=== PATIENT | female | born 1980 | race Caucasian/White ===

== ENCOUNTER 2017-05-28 19:06 | Emergency (ER) | payer OTHER ==
[~2017-05-28] VITALS: Ht 172.7 cm; Wt 56.7 kg
[~2017-05-28 19:06] MED LIST: BENZ100A PO; Bactrim Ds Tab1 EACH PO; CITA20 PO; CODACE30 PO; CYCL10 PO; DULO60 PO; GUAI120S1 PO; IBUP600 PO; METPRE4DP PO; NAPR220 PO; NAPR550 PO; NITR100CA PO; Naprosyn500 MG PO; Norco 5-325 Ta1 EACH PO; PENVK500 PO; PHENA100 PO; PRED20 PO; RXTRAM50 PO; SULI200 PO; TRAM50 PO; TRAZ50 PO; Ultram50 MG PO; Valium5 MG PO; Zithromax250 MG PO; Zofran Odt4 MG SL
[2017-05-28] MEDS ORDERED: Robaxin500 MG PO (19:48)
[2017-07-15] MEDS ORDERED: Cyclobenzaprine5 MG PO (16:02)
== END 2017-05-28 19:54 | disposition home or self-care (01) ==
LOC: ER 19:06
DX: M54.6 Pain in thoracic spine (principal); Z88.8 Allergy status to other drugs, medicaments and biological substances; Z79.899 Other long term (current) drug therapy; M26.609 Unspecified temporomandibular joint disorder, unspecified side; G43.909 Migraine, unspecified, not intractable, without status migrainosus; Z90.89 Acquired absence of other organs; Z98.51 Tubal ligation status; F17.200 Nicotine dependence, unspecified, uncomplicated; W01.198A Fall on same level from slipping, tripping and stumbling with subsequent striking against other object, initial encounter
CPT/HCPCS: 96372; 99283; J1885

== ENCOUNTER 2017-06-11 21:00 | Emergency (ER) | payer OTHER ==
[~2017-06-11] VITALS: Ht 172.7 cm; Wt 54.4 kg
[~2017-06-11 21:00] MED LIST changes: +Robaxin500 MG PO
[2017-06-11] MEDS ORDERED: Mobic15 MG PO (22:48)
[2017-07-15] MEDS ORDERED: Cyclobenzaprine5 MG PO (16:02)
== END 2017-06-11 22:53 | disposition home or self-care (01) ==
LOC: ER 21:00
DX: S80.11XA Contusion of right lower leg, initial encounter (principal); F17.210 Nicotine dependence, cigarettes, uncomplicated; Z88.8 Allergy status to other drugs, medicaments and biological substances; Z79.899 Other long term (current) drug therapy; W54.1XXA Struck by dog, initial encounter
CPT/HCPCS: 73610; 96372; 99283; J1885

== ENCOUNTER 2017-07-15 15:05 | Emergency (ER) | payer OTHER ==
[~2017-07-15] VITALS: Ht 172.7 cm; Wt 56.7 kg
[~2017-07-15 15:05] MED LIST changes: +Mobic15 MG PO
[2017-07-15] MEDS ORDERED: Cyclobenzaprine5 MG PO ×2 (16:02)
== END 2017-07-15 16:21 | disposition home or self-care (01) ==
LOC: ER 15:05
DX: T14.8XXA Other injury of unspecified body region, initial encounter (principal); M54.6 Pain in thoracic spine; M25.511 Pain in right shoulder; M25.512 Pain in left shoulder; F17.210 Nicotine dependence, cigarettes, uncomplicated; Z88.8 Allergy status to other drugs, medicaments and biological substances; Z88.1 Allergy status to other antibiotic agents; Z79.899 Other long term (current) drug therapy; X50.0XXA Overexertion from strenuous movement or load, initial encounter
CPT/HCPCS: 99283

== ENCOUNTER 2018-09-16 18:54 | Emergency (ER) | payer OTHER ==
[~2018-09-16] VITALS: Ht 172.7 cm; Wt 61.2 kg
[~2018-09-16 18:54] MED LIST changes: +Cyclobenzaprine5 MG PO
[2018-09-16] MEDS ORDERED: CIPR500 PO (20:14)
[2018-09-16] MEDS ORDERED: KETO10 PO (20:14)
== END 2018-09-16 20:24 | disposition home or self-care (01) ==
LOC: ER 18:54
DX: S91.331A Puncture wound without foreign body, right foot, initial encounter (principal); W22.8XXA Striking against or struck by other objects, initial encounter; Z88.8 Allergy status to other drugs, medicaments and biological substances; Z79.899 Other long term (current) drug therapy; G43.909 Migraine, unspecified, not intractable, without status migrainosus; F17.210 Nicotine dependence, cigarettes, uncomplicated
CPT/HCPCS: 73630; 90471; 90714; 99283-25

== ENCOUNTER 2018-10-07 21:33 | Emergency (ER) | payer OTHER ==
[~2018-10-07] VITALS: Ht 172.7 cm; Wt 61.2 kg
[~2018-10-07 21:33] MED LIST changes: +CIPR500 PO; +KETO10 PO
[2018-10-07] MEDS ORDERED: NAPR500EC PO (21:39)
[2018-10-07] MEDS ORDERED: KETO10 PO (23:03)
== END 2018-10-07 23:14 | disposition home or self-care (01) ==
LOC: ER 21:33
DX: M62.830 Muscle spasm of back (principal); Z88.8 Allergy status to other drugs, medicaments and biological substances; Z79.899 Other long term (current) drug therapy; G43.909 Migraine, unspecified, not intractable, without status migrainosus; F17.210 Nicotine dependence, cigarettes, uncomplicated
CPT/HCPCS: 93005; 93010; 99283-25; A9270

== ENCOUNTER 2019-03-22 13:02 | Emergency (ER) | payer OTHER ==
[~2019-03-22] VITALS: Ht 172.7 cm; Wt 59.4 kg
[~2019-03-22 13:02] MED LIST changes: +NAPR500EC PO; +VICODIN 5-3001 EACH PO; +Zofran4 MG PO
[2019-03-22] MEDS ORDERED: IBUP800 PO (14:08)
[2019-03-22] MEDS ORDERED: Prednisone20 MG PO (14:15)
[2019-03-22] MEDS ORDERED: TRAZ50 PO (14:36)
== END 2019-03-22 14:37 | disposition home or self-care (01) ==
LOC: ER 13:02
DX: S43.401A Unspecified sprain of right shoulder joint, initial encounter (principal); W22.8XXA Striking against or struck by other objects, initial encounter; Z88.8 Allergy status to other drugs, medicaments and biological substances; Z79.899 Other long term (current) drug therapy
CPT/HCPCS: 73030; 99283-25